=== PATIENT | male | born 1940 ===

== ENCOUNTER 2018-05-24 05:50 | Day surgery (SDC) | payer MEDICARE ==
[~2018-05-24] VITALS: Ht 175.3 cm; Wt 73.0 kg
[~2018-05-24 05:50] MED LIST: ACYC800; ACYC800 PO; ALLO100 PO; ALLO300 PO; ASCO500 PO; CETI10 PO; CHOL10002 PO; COLCHICINE0.6 MG PO; FAMO20 PO; FERR325 PO; FISH1000 PO; GABA600 PO; GOUT MED; HYDCHL25 PO; KLOR-CON; LISI5 PO; LOSA50 PO; MECL25; Norco 5-325 Ta1 EACH PO; PANT20 PO; POTCHL20ER PO; PRED20 PO; SPIHYD PO; TAMS.4ER PO; URSO; URSO300; URSO300 PO
[2018-05-24] MEDS ORDERED: LOSA50 PO (06:42)
[2018-05-24] MEDS ORDERED: LOSA25 PO (06:43)
--- NOTE | 2018-05-24 06:53 | NUR ---
History, Chart, Medications and Allergies reviewed before start of procedure. Patient confirms NPO status and agrees with scheduled surgery. Patient States Post-Procedure ride home has been arranged with his significant other, Valente. Patient reports completing Chlorhexadine shower X2 prior to admission to hospital.
--- NOTE | 2018-05-24 13:23 | NUR ---
Patient up to Ambulate independently. Gait steady. Discharge instructions reviewed with patient. Patient verbalizes understanding. Copy given to patient to take home. Patient States Post-Procedure ride home has been arranged. Discharged via wheelchair to private car for ride home.
== END 2018-05-25 23:05 | disposition home or self-care (01) ==
LOC: ORSCMMR 05:50 → ORD 07:30 → ORSCMMR 05-25 23:05
DX: K40.20 Bilateral inguinal hernia, without obstruction or gangrene, not specified as recurrent (principal); I12.9 Hypertensive chronic kidney disease with stage 1 through stage 4 chronic kidney disease, or unspecified chronic kidney disease; N18.9 Chronic kidney disease, unspecified; E03.9 Hypothyroidism, unspecified; G62.9 Polyneuropathy, unspecified; Z79.899 Other long term (current) drug therapy; Z87.891 Personal history of nicotine dependence
CPT/HCPCS: 49650; S2900; C1781; J0690; J1100; J1885; J2370; J2405; J3010; J7120

== ENCOUNTER 2018-06-16 11:17 | Emergency (ER) | payer MEDICARE ==
[~2018-06-16] VITALS: Ht 175.3 cm; Wt 70.3 kg
[~2018-06-16 11:17] MED LIST changes: +LOSA25 PO
== END 2018-06-16 13:14 | disposition home or self-care (01) ==
LOC: ER 11:17
DX: M70.22 Olecranon bursitis, left elbow (principal); I12.9 Hypertensive chronic kidney disease with stage 1 through stage 4 chronic kidney disease, or unspecified chronic kidney disease; N18.9 Chronic kidney disease, unspecified; M10.9 Gout, unspecified; N40.0 Benign prostatic hyperplasia without lower urinary tract symptoms; Z87.891 Personal history of nicotine dependence; Z88.0 Allergy status to penicillin; Z88.8 Allergy status to other drugs, medicaments and biological substances; Z79.899 Other long term (current) drug therapy
CPT/HCPCS: 73080; 99283-25

== ENCOUNTER 2018-06-18 08:31 | Emergency (ER) | payer MEDICARE ==
[~2018-06-18] VITALS: Ht 175.3 cm; Wt 70.3 kg
[2018-06-18] MEDS ORDERED: Valium5 MG PO (09:45)
[2018-06-18] MEDS ORDERED: Norco 5-325 Ta1 EACH PO (09:45)
== END 2018-06-18 10:18 | disposition home or self-care (01) ==
LOC: ER 08:31
DX: S16.1XXA Strain of muscle, fascia and tendon at neck level, initial encounter (principal); W01.198A Fall on same level from slipping, tripping and stumbling with subsequent striking against other object, initial encounter; I12.9 Hypertensive chronic kidney disease with stage 1 through stage 4 chronic kidney disease, or unspecified chronic kidney disease; N18.9 Chronic kidney disease, unspecified; Z87.891 Personal history of nicotine dependence; Z79.899 Other long term (current) drug therapy
CPT/HCPCS: 72125; 99283-25

== ENCOUNTER 2018-12-26 11:56 | Inpatient (IN) | payer MEDICARE ==
[~2018-12-26] VITALS: Ht 175.3 cm; Wt 75.4 kg
[~2018-12-26 11:56] MED LIST changes: -ACYC800 PO; -ASCO500 PO; -CHOL10002 PO; -FISH1000 PO; -GABA600 PO; -TAMS.4ER PO; -URSO300 PO; +Valium5 MG PO
[2018-12-26 12:15] LABS: Calcium, Ionized (POC) 1.11 mmol/L (1.10-1.46); Chloride (POC) 107 mmol/L (98-108); Creatinine (POC) 2.2 mg/dL (0.8-1.3); Glucose (ISTAT POC) 166 mg/dL (70-99); Hemoglobin (POC) 9.9 g/dL (13.5-17.5); Sodium (POC) 141 mmol/L (135-148); Total CO2 (POC) 22 mmol/L (21-32)
[2018-12-26 12:17] LABS: Hematocrit 32.3 % (37.0-53.0); Hemoglobin 10.6 g/dL (13.5-17.5); Mean Corpuscular HGB 34.4 pg (26.0-34.0); Mean Corpuscular HGB Conc 32.8 g/dL (31.5-36.5); Mean Corpuscular Volume 105 fL (80-100); Mean Platelet Volume 10.4 fL (9.1-12.4); Platelet Count 141 K/mm3 (150-400); RDW Coefficient Variation 12.4 % (11.7-14.2); RDW Standard Deviation 47.6 fL (35.1-46.3); Red Blood Cell Count 3.08 M/mm3 (4.30-5.90); White Blood Cell Count 5.96 K/mm3 (4.00-11.30)
[2018-12-26 12:33] LABS: International Normalized Ratio 1.04
[2018-12-26 12:37] LABS: Albumin, Blood 2.7 g/dL (3.4-5.0); Albumin/Globulin Ratio 0.7 (0.8-1.8); Bilirubin, Total 0.4 mg/dL (0.1-1.0); Bun/Creatinine Ratio 13.2 (12.0-20.0); Calcium, Blood 7.7 mg/dL (8.5-10.1); Creatinine, Blood 1.9 mg/dL (0.60-1.20); Magnesium, Blood 1.9 mg/dL (1.6-2.4); Total Protein, Blood 6.7 g/dL (6.4-8.2); Troponin I 0.065 ng/mL (0.000-0.040)
--- NOTE | 2018-12-26 15:04 | NUR ---
ADMIT PT ARRIVED TO ICU 1 AT 1355. PT ALERT AND ORIENTED, A LITTLE DROWSY. R TR BAND SITE C/D/I, SOFT, NO HEMATOMA. PT DENIES NUMBNESS OR TINGLING IN R HAND. DENIES CHEST PAIN. AGGRASTAT STOPPED PER DR. ANDREW'S ORDERS. IV FLUIDS INFUSING.
--- NOTE | 2018-12-26 17:06 | NUR ---
SHIFT SUMMARY: PT HAS DONE WELL SINCE BEING ADMITTED. HIS RADIAL ACCESS SITE REMAINS C/D/I, SOFT WITH NO HEMATOMA. STARTED LETTING AIR OUT OF THE TR BAND AT 1600 AND PT HAS NOT HAD ANY REBLEEDING. PT DENIES ANY CHEST PAIN. HR IS SR WITH PVCS. SBP HAS BEEN IN THE 140-170S. LUNGS ARE CLEAR, RA. PT HAS BEEN COOPERATIVE WITH ACTIVITY RESTRICTIONS REGARDING RADIAL SITE. PT'S FAMILY HAS BEEN IN AND HAS BEEN UPDATED. CONTINUING TO MONITOR.
--- NOTE | 2018-12-26 18:35 | NUR ---
TR BAND OFF. TEGADERM PLACED OVER SITE. SITE REMAINS C/D/I, SOFT WITH NO HEMATOMA. SPLINT REMAINS IN PLACE AND ACTIVITY RESTRICTIONS FOR WRIST REVIEWED WITH PT.
--- NOTE | 2018-12-26 19:45 | NUR ---
ASSUMED CARE RECEIVED REPORT FROM JACOB RIVAS. PT IS SITTING ON COMMODE TALKING WITH PARTNER. PT DENIES CP AND SOB. STATES HIS ONLY DISCOMFORT IS SOME PRESSURE IN HIS SUPRAPUBIC AREA. HE IS ALERT AND ORIENTED X 4. NS INFUSING AT 75ML/HR. CALL LIGHT WITHIN REACH.
--- NOTE | 2018-12-26 22:34 | NUR ---
UPDATE PT BEEN COMPLAINING OF 5/10 PAIN, PRESSURE IN HIS SUPRAPUBIC AREA. HAS STATED THAT HE HAS HAD ISSUES RECENTLY TRYING TO URINATE, HE COMPLAINS OF DRIBBLING, AND NOT FULLY EMPTYING. TODAY IN ICU PT CANNOT EMPTY BLADDER WHAT SO EVER. ATTEMPTED TO STRAIGHT CATH PT, BUT COULDN'T FINISH. PT WAS IN EXTREME PAIN, AND IT FELT LIKE I WAS HITTING A ROAD BLOCK. CALLED ROSE METZGER TO TRY A UROJET OF LIDOCAINE, AND TO GIVE A DOSE OF TAMSULOSIN.
[2018-12-27 00:36] LABS: Source, Urine Catheter
--- NOTE | 2018-12-27 00:36 | NUR ---
UPDATE STRAIGHT CATHETER DRAINED OVER 600ML OF URINE, SO I GOT ORDERS TO LEAVE IT IN AN INDWELLING CATHETER. UA WAS SENT. ONCE BLADDER WAS DRAINED - BP IMPROVED TREMENDOUSLY, SEE VITAL SIGNS.
[2018-12-27 00:43] LABS: Bilirubin, Urine Neg (Neg); Blood, Urine 3+ (Neg); Glucose Qualitative, Urine Neg (Neg); Ketones, Urine Neg (Neg); Leukocyte Esterase, Urine Neg (Neg); Nitrite, Urine Neg (Neg); Protein, Urine 1+ (Neg); Specific Gravity, Urine 1.005 (1.003-1.022); Urobilinogen, Urine NORM (Normal)
[2018-12-27 00:53] LABS: Appearance, Urine Clear (Clear); Color, Urine Yellow (P-Yellow)
[2018-12-27 00:54] LABS: Bacteria Not Seen /hpf; Red Blood Cells, Urine 0-2 /hpf (0-2); Squamous Epithelial Cells Not Seen /hpf (Few); White Blood Cells, Urine Not Seen /hpf (0-5)
[2018-12-27 04:14] LABS: BASOPHILS ABSOLUTE AUTO 0.03 K/mm3 (0.00-0.23); BASOPHILS PERCENT AUTO 0 % (0-2); EOSINOPHILS ABSOLUTE AUTO 0.05 K/mm3 (0.00-0.68); EOSINOPHILS PERCENT AUTO 1 % (0-6); Hematocrit 31.7 % (37.0-53.0); Hemoglobin 10.8 g/dL (13.5-17.5); IMMATURE GRAN ABSOLUTE AUTO 0.03 K/mm3 (0.00-0.10); IMMATURE GRAN PERCENT AUTO 0 % (0-1); LYMPHOCYTES ABSOLUTE AUTO 1.33 K/mm3 (0.84-5.20); LYMPHOCYTES PERCENT AUTO 14 % (21-46); MONOCYTES ABSOLUTE AUTO 0.96 K/mm3 (0.16-1.47); MONOCYTES PERCENT AUTO 10 % (4-13); Mean Corpuscular HGB 35.5 pg (26.0-34.0); Mean Corpuscular HGB Conc 34.1 g/dL (31.5-36.5); Mean Corpuscular Volume 104 fL (80-100); Mean Platelet Volume 10.2 fL (9.1-12.4); NEUTROPHILS ABSOLUTE AUTO 7.03 K/mm3 (1.96-9.15); NEUTROPHILS PERCENT AUTO 75 % (41-73); Platelet Count 147 K/mm3 (150-400); RDW Coefficient Variation 12.4 % (11.7-14.2); RDW Standard Deviation 47.5 fL (35.1-46.3); Red Blood Cell Count 3.04 M/mm3 (4.30-5.90); White Blood Cell Count 9.43 K/mm3 (4.00-11.30)
[2018-12-27 04:32] LABS: Albumin, Blood 2.5 g/dL (3.4-5.0); Albumin/Globulin Ratio 0.6 (0.8-1.8); Bilirubin, Direct 0.1 mg/dL (0.0-0.3); Bilirubin, Indirect 0.4 mg/dL (0.1-0.7); Bilirubin, Total 0.5 mg/dL (0.1-1.0); Bun/Creatinine Ratio 13.4 (12.0-20.0); Calcium, Blood 7.6 mg/dL (8.5-10.1); Creatinine, Blood 2.09 mg/dL (0.60-1.20); Potassium, Blood 4.1 mmol/L (3.5-5.5); Total Protein, Blood 6.5 g/dL (6.4-8.2)
--- NOTE | 2018-12-27 05:08 | NUR ---
SHIFT SUMMARY PT IS DOING WELL POST NUCLEAR MEDICINE TECHNICIAN PROCEDURE. DENIES CP AND SOB. NO NOTED EKG CHANGES, AND RIGHT RADIAL SITE IS WNL, NO SIGNS OF BLEEDING, HEMATOMA FORMATION. STRONG PULSES, GOOD CAP REFIL, AND NO COMPLAINTS OF NUMBNESS/TINGLING IN RIGHT HAND. PT STARTED SHIFT WITH INCREASED PRESSURE IN SUPRAPUBIC AREA; RELIEVED WITH NAVARRO CATHETER. URINE PINK TINGED POST INDWELLING INSERTION. WHEN INSERTING NAVARRO CATHETER, PT HAD IMMENSE PAIN, AND SHOWED SIGNS OF ENLARGED PROSTATE. (DRIBBLING URINE PRIOR, UNABLE TO EMPTY BLADDER). SEE PREVIOUS BLOOD PRESSURE. OTHER THAN THAT, PT HAD UNEVENTFUL NIGHT. NO COMPLAINTS OF DISCOMFORT. PARTNER WAS AT BEDSIDE AT START OF SHIFT, BUT WENT HOME. BED IS LOW AND LOCKED. CALL LIGHT WITHIN REACH. PT IS RECEIVING 1/2 NS @ 75ML/HR.
--- NOTE | 2018-12-27 08:25 | NUR ---
ASSUMED CARE ASSUMED CARE OF PT AT 0700. REPORT RECEIVED FROM ROB MARCELO. PT AWAKE, ALERT, ORIENTED X4. PT COMPLAINS OF FEELING OF PRESSURE/FULLNESS OVER ABDOMEN WELL "FEELING FUNNY" IN HIS LEFT ARM. EKG OBTAINED. DR BARBA NOTIFIED. ORDERS FOR NITRO PASTE OBTAINED AND SHE WILL SEE THE PT THIS MORNING. PT HAS NO OTHER COMPLAINTS OF PAIN, NAUSEA, SHORTNESS OF BREATH. R RADIAL ACCESS SITE STABLE. ARM BOARD REMAINS IN PLACE. VITAL SIGNS STABLE. PT HAS NAVARRO CATH IN PLACE DRAINING TO GRAVITY. PT USING CALL LIGHT FOR NEEDS. WILL CONTINUE TO MONITOR.
[2018-12-27 09:55] LABS: Creatine Kinase MB 120.7 ng/mL (0.0-3.6)
[2018-12-27 10:11] LABS: Creatine Kinase MB Index 10.6 (0.0-4.0); Troponin I 70.8 ng/mL (0.000-0.040)
--- NOTE | 2018-12-27 11:03 | NUR ---
Patient is lying in bed and alert. Patient openly shares about his life choices, his different careers (including 27 years at [employer]), his family dynamics and about his thoughts on mandaeism (patient has a [employer] background). I listen empathically, reinforce helpful attitudes and practices, explore spiritual beliefs and provide emotional support, a calming presence and prayer. Patient responds well and states that he feels safe and that he appreciates that. I will continue to remain available to patient and family.
--- NOTE | 2018-12-27 13:06 | NUR ---
REPORT GIVEN TO KODY GLUE JOINTER FEEDER TO ASSUME CARE OF PT.
--- NOTE | 2018-12-27 13:30 | NUR ---
ASSUMED CARE: PT TRANSFERRED TO PCU 15 FROM ICU. REPORT RECIEVED FROM ROB CANTRELL. PT'S WRIST SITE WITHOUT BLEEDING OR SIGNS OF HEMATOMA. ARM BOARD IN PLACE. NAVARRO CATH IN PLACE WITH PINK TINGED URINE. TELE MONITOR ON, HR NSR. SCDS IN PLACE. RESTING IN BED QUIETLY, S.O. AT BEDSIDE
--- NOTE | 2018-12-27 14:50 | NUR ---
PT STATED HE WAS FEELING SOB, BUT NO CP. CHECKED WITH TELE AND SOME BIGEMINY NOTED. BOTTLE PACKER AWARE. SPOKE WITH PT AND INSTRUCTED TO LET STAFF KNOW IF ANY CHEST PAIN OCCURS OR IF SOB CONTINUES OR WORSENS
--- NOTE | 2018-12-27 17:43 | NUR ---
SHIFT SUMMARY: PT INDEPENDENT IN ROOM. RADIAL SITE WITHOUT SIGNS OF BLEEDING OR HEMATOMA. AWAITING AFTERNOON TROPONIN. DENIES CP OR FURTHER CONCERNS. FAMILY AT BEDSIDE AT THIS TIME. DENIES NEEDS OR CONCERNS.
[2018-12-27 17:48] LABS: Creatine Kinase MB 63.4 ng/mL (0.0-3.6); Creatine Kinase MB Index 6.9 (0.0-4.0)
[2018-12-27 18:07] LABS: Troponin I 48.4 ng/mL (0.000-0.040)
--- NOTE | 2018-12-27 18:29 | NUR ---
ASSISTANT DRAFTER CALLED WITH REPORT OF MULTIFOCAL PVCS. SPOKE WITH DR GUEVARA TO DISCUSS. INCREASED BETA BLOCKERS. STATES THAT IF RUN OF VTACH NOTED, DO EKG. STATES HE WILL DISCUSS PT WITH DR ANDREW.
[2018-12-28 01:24] LABS: Albumin, Blood 2.7 g/dL (3.4-5.0); Albumin/Globulin Ratio 0.6 (0.8-1.8); Bilirubin, Direct 0.2 mg/dL (0.0-0.3); Bilirubin, Indirect 0.4 mg/dL (0.1-0.7); Bilirubin, Total 0.6 mg/dL (0.1-1.0); Bun/Creatinine Ratio 15.8 (12.0-20.0); Creatinine, Blood 2.09 mg/dL (0.60-1.20); Globulin, Blood 4.2 g/dL (2.2-4.0); Potassium, Blood 4.2 mmol/L (3.5-5.5); Total Protein, Blood 6.9 g/dL (6.4-8.2)
[2018-12-28 01:40] LABS: Creatine Kinase MB Index 5.3 (0.0-4.0)
[2018-12-28 02:01] LABS: Troponin I 40.6 ng/mL (0.000-0.040)
--- NOTE | 2018-12-28 04:53 | NUR ---
SHIFT SUMMARY: PATIENT TROPONINS TRENDING DOWN, VSS, LEFT KNEE PAIN TREATED WITH 1X MEDICATION ORDER (SEE EMAR). BED LOW AND LOCKED, CALL LIGHT WITHIN REACH.
[2018-12-28] MEDS ORDERED: TICA90TA (10:40)
[2018-12-28] MEDS ORDERED: ABAT250V (10:41)
--- NOTE | 2018-12-28 14:13 | NUR ---
PT DISCHARGED 1205 WITH DC INSTRUCTIONS GIVEN TO PT AND SIGN OTHER. PT'S POWERGLIDE AND IV DC'D. PT DC'D HOME WITH NAVARRO CATH AND DC INSTRUCTIONS GIVEN. PT STATES F/U VISIT WITH UROLOGIST IN [place] 01/03. RX FAXED TO [facility]. WC OUTSIDE TO PRIVATE CAR TO HOME. BELONGINGS SENT WITH PT.
[2018-12-30] MEDS ORDERED: Zithromax250 MG PO (01:22)
== END 2018-12-28 12:15 | disposition home or self-care (01) | DRG 247 ==
LOC: ER 11:56 → ICUW 12:14 → ICUE 12:14 → PCU 12-27 13:15
PROVIDERS: Emergency Medicine; Internal Medicine; ADMIT Internal Medicine Interventional Cardiology
PROC: 4A023N7 Measurement of Cardiac Sampling and Pressure, Left Heart, Percutaneous Approach (ICD-10-PCS; principal; 2018-12-26)
PROC: 027034Z Dilation of Coronary Artery, One Artery with Drug-eluting Intraluminal Device, Percutaneous Approach (ICD-10-PCS; 2018-12-26)
PROC: B211YZZ Fluoroscopy of Multiple Coronary Arteries using Other Contrast (ICD-10-PCS; 2018-12-26)
DX: I21.19 ST elevation (STEMI) myocardial infarction involving other coronary artery of inferior wall (principal); K92.2 Gastrointestinal hemorrhage, unspecified; I25.10 Atherosclerotic heart disease of native coronary artery without angina pectoris; I12.9 Hypertensive chronic kidney disease with stage 1 through stage 4 chronic kidney disease, or unspecified chronic kidney disease; N18.3 Chronic kidney disease, stage 3 (moderate); N40.0 Benign prostatic hyperplasia without lower urinary tract symptoms; K74.60 Unspecified cirrhosis of liver; M10.9 Gout, unspecified
CPT/HCPCS: 36415; 51701; 51703; 71045; 76937; 80047; 80048; 80053; 80076; 81001; 82248; 82550; 82553; 83735; 84484; 85014; 85025; 85027; 85347; 85610; 85730; 86850; 86900; 86901; 92978; 93005; 93010; 93306; 93458; 99152; 99153; 99285-25; C1725; C1751; C1753; C1757; C1769; C1874; C1887; C1894; C9606; J0461; J1644; J2250; J2370; J3010; J3246; J7030; Q9967

== ENCOUNTER 2018-12-30 16:40 | Inpatient (IN) | payer MEDICARE ==
[~2018-12-30] VITALS: Ht 175.3 cm; Wt 68.6 kg
[~2018-12-30 16:40] MED LIST changes: +ABAT250V; +TICA90TA; +Zithromax250 MG PO
[2018-12-30 17:13] LABS: BASOPHILS ABSOLUTE AUTO 0.03 K/mm3 (0.00-0.23); BASOPHILS PERCENT AUTO 0 % (0-2); EOSINOPHILS PERCENT AUTO 0 % (0-6); Hematocrit 30.9 % (37.0-53.0); Hemoglobin 10.5 g/dL (13.5-17.5); IMMATURE GRAN ABSOLUTE AUTO 0.07 K/mm3 (0.00-0.10); IMMATURE GRAN PERCENT AUTO 1 % (0-1); LYMPHOCYTES PERCENT AUTO 7 % (21-46); MONOCYTES PERCENT AUTO 14 % (4-13); Mean Corpuscular HGB 34.9 pg (26.0-34.0); Mean Corpuscular Volume 103 fL (80-100); NEUTROPHILS ABSOLUTE AUTO 11.44 K/mm3 (1.96-9.15); NEUTROPHILS PERCENT AUTO 79 % (41-73); Platelet Count 153 K/mm3 (150-400); RDW Coefficient Variation 12.3 % (11.7-14.2); RDW Standard Deviation 45.9 fL (35.1-46.3); Red Blood Cell Count 3.01 M/mm3 (4.30-5.90); White Blood Cell Count 14.54 K/mm3 (4.00-11.30)
[2018-12-30] MEDS ORDERED: GABA300 PO (17:38)
[2018-12-30] MEDS ORDERED: Zovirax800 MG PO (17:39)
[2018-12-30] MEDS ORDERED: TAMS.4ER PO (17:39)
[2018-12-30] MEDS ORDERED: LOSA25 PO (17:40)
[2018-12-30] MEDS ORDERED: URSODIOL250 MG PO (17:40)
[2018-12-30 17:41] LABS: Albumin, Blood 2.8 g/dL (3.4-5.0); Albumin/Globulin Ratio 0.6 (0.8-1.8); Bilirubin, Total 1.3 mg/dL (0.1-1.0); Bun/Creatinine Ratio 13.1 (12.0-20.0); Calcium, Blood 8.2 mg/dL (8.5-10.1); Creatinine, Blood 2.13 mg/dL (0.60-1.20); Globulin, Blood 4.5 g/dL (2.2-4.0); Total Protein, Blood 7.3 g/dL (6.4-8.2)
[2018-12-30] MEDS ORDERED: LEVSOD50 PO (17:41)
[2018-12-30] MEDS ORDERED: Aspir 8181 MG PO (17:41)
[2018-12-30] MEDS ORDERED: Lipitor20 MG PO (17:42)
[2018-12-30] MEDS ORDERED: METO25 PO (17:42)
[2018-12-30] MEDS ORDERED: Norvasc2.5 MG PO (17:42)
[2018-12-30] MEDS ORDERED: LOSARTAN POTASS50 MG PO (17:47)
[2018-12-30] MEDS ORDERED: TICA90TA PO (18:02)
[2018-12-30] MEDS ORDERED: Vitamin C PO (18:04)
[2018-12-30] MEDS ORDERED: Fish Oil 10001000 MG PO (18:04)
[2018-12-30] MEDS ORDERED: Vitamin D3 PO (18:05)
[2018-12-30] MEDS ORDERED: Vitamin B-12 PO (18:05)
[2018-12-30] MEDS ORDERED: Biotin PO (18:06)
[2018-12-30 18:15] LABS: Troponin I 2.35 ng/mL (0.000-0.040)
[2018-12-30 22:24] LABS: Source, Urine Clean Catch
[2018-12-30 22:27] LABS: Bilirubin, Urine Neg (Neg); Blood, Urine 4+ (Neg); Glucose Qualitative, Urine Neg (Neg); Ketones, Urine Neg (Neg); Leukocyte Esterase, Urine 1+ (Neg); Nitrite, Urine Neg (Neg); Protein, Urine 3+ (Neg); Specific Gravity, Urine 1.005 (1.003-1.022); Urobilinogen, Urine NORM (Normal)
[2018-12-30 22:32] LABS: Appearance, Urine Clear (Clear); Color, Urine Yellow (P-Yellow)
[2018-12-30 22:34] LABS: Bacteria Few /hpf; Squamous Epithelial Cells Not Seen /hpf (Few)
--- NOTE | 2018-12-31 00:54 | NUR ---
ASSUMED CARE. PT AWAKE AND RESQUESTS MORE WATER. MORE WATER GIVEN, BUT EXPLAINED THAT HE WILL NEED TO GO SLOW BECAUSE WE ARE TRYING TO DIURES HIM.
--- NOTE | 2018-12-31 04:07 | NUR ---
NAVARRO D/C'D PT WAS ADMITTED WITH A NAVARRO INPLACE FROM HIS PREVIOUS VISIT. IT WAS JUST REMOVED WITHOUT ANY DIFFICULTY.
--- NOTE | 2018-12-31 05:57 | NUR ---
SHIFT SUMMARY: PT DIDN'T SLEEP MUCH AT ALL. HAS FELT VERY UNCOMFORTABLE ALL NIGHT. HAS BEEN UP NUMEROUS TIME TO HAVE BM'S. BM'S HAVE VERY HARD AND DARK BROWN. WITH THE LAST BM, PT CONVERTED FROM AFIB TO SINUS RHYTHM WITH PVC'S. PT HAVING DYSPNEA AND SOB WITH EXERTION. TROP TRENDING DOWN.
[2018-12-31 09:08] LABS: BASOPHILS ABSOLUTE AUTO 0.04 K/mm3 (0.00-0.23); BASOPHILS PERCENT AUTO 0 % (0-2); EOSINOPHILS ABSOLUTE AUTO 0.02 K/mm3 (0.00-0.68); EOSINOPHILS PERCENT AUTO 0 % (0-6); Hematocrit 30.2 % (37.0-53.0); Hemoglobin 10.4 g/dL (13.5-17.5); IMMATURE GRAN ABSOLUTE AUTO 0.06 K/mm3 (0.00-0.10); IMMATURE GRAN PERCENT AUTO 0 % (0-1); LYMPHOCYTES ABSOLUTE AUTO 1.29 K/mm3 (0.84-5.20); LYMPHOCYTES PERCENT AUTO 9 % (21-46); MONOCYTES PERCENT AUTO 10 % (4-13); Mean Corpuscular HGB 35.5 pg (26.0-34.0); Mean Corpuscular HGB Conc 34.4 g/dL (31.5-36.5); Mean Corpuscular Volume 103 fL (80-100); Mean Platelet Volume 11.2 fL (9.1-12.4); NEUTROPHILS ABSOLUTE AUTO 11.89 K/mm3 (1.96-9.15); NEUTROPHILS PERCENT AUTO 80 % (41-73); Platelet Count 176 K/mm3 (150-400); RDW Coefficient Variation 12.4 % (11.7-14.2); RDW Standard Deviation 46.6 fL (35.1-46.3); Red Blood Cell Count 2.93 M/mm3 (4.30-5.90)
[2018-12-31 09:30] LABS: Albumin, Blood 2.5 g/dL (3.4-5.0); Albumin/Globulin Ratio 0.5 (0.8-1.8); Bilirubin, Total 1.1 mg/dL (0.1-1.0); Bun/Creatinine Ratio 14.2 (12.0-20.0); Calcium, Blood 7.8 mg/dL (8.5-10.1); Creatinine, Blood 2.25 mg/dL (0.60-1.20); Globulin, Blood 4.9 g/dL (2.2-4.0); Total Protein, Blood 7.4 g/dL (6.4-8.2)
[2018-12-31 11:35] LABS: Adenovirus Not Detected (NOT DETECT); Bordetella pertussis Not Detected (NOT DETECT); Chlamydophila pneumoniae Not Detected (NOT DETECT); Coronavirus 229E Not Detected (NOT DETECT); Coronavirus HKU1 Not Detected (NOT DETECT); Coronavirus NL63 Not Detected (NOT DETECT); Coronavirus OC43 Not Detected (NOT DETECT); Human Metapneumovirus Not Detected (NOT DETECT); Human Rhinovirus/Enterovirus Not Detected (NOT DETECT); Influenza A Not Detected (NOT DETECT); Influenza A/2009-H1 Not Detected (NOT DETECT); Influenza A/H1 Not Detected (NOT DETECT); Influenza A/H3 Not Detected (NOT DETECT); Influenza B Not Detected (NOT DETECT); Mycoplasma pneumoniae Not Detected (NOT DETECT); Parainfluenza Virus 1 Not Detected (NOT DETECT); Parainfluenza Virus 2 Not Detected (NOT DETECT); Parainfluenza Virus 3 Not Detected (NOT DETECT); Parainfluenza Virus 4 Not Detected (NOT DETECT); Respiratory Syncytial Virus Not Detected (NOT DETECT)
--- NOTE | 2018-12-31 16:00 | NUR ---
Patient is sitting on the edge of his bed and alert. Patient tells me the story of current medical issues and the plans for him moving forward. Patient talks at length about his struggles, lessons and beliefs in life. Patient shares personal stories of great ache and great success. I listen empathically, highlight the victories, reinforce helpful attitudes and practices and provide companionship and prayer. Patient responds well and shows signs of restored racheal. Patient voices appreciation for my time and care. I will continue to remain available to patient and family.
--- NOTE | 2018-12-31 17:35 | NUR ---
SHIFT SUMMARY PT ALERT AND ORIENTED. VS STABLE. HR NSR WITH PVC. BP STABLE. O2 SATS REMAIN ABOVE 90% ON RA. PT ABLE TO WALK TO BATHROOM NEEDED TO VOID INDEPENDENTLY. PT STATES HE HAS CHEST DISCOMFORT AND SOB IF HE TRIES TO LAY FLAT, BUT DENIES ANY PAIN OR SOB WITH SITTING UP. WILL CONTINUE TO MONITOR AND REPORT TO ONCOMING RN. CALL LIGHT IN REACH. PT CALLING APPROPRIATELY.
--- NOTE | 2018-12-31 19:50 | NUR ---
PT UP PER SELF WITHOUT DIFFICULTY TO VOID, DENIES CHEST PAIN, NAUSEA OR DYSPNEA.
--- NOTE | 2019-01-01 00:48 | NUR ---
CONVERTED FROM SR, WHICH HE HAS BEEN ALL DAY SINCE APPROX 0400 LAST NOC , TO AF NOW AT 130 RATE. NO NEW CHEST DISCOMFORT REPORTED PALPATES LT CHEST AXILLA AREA AND SAYS THIS AREA KAROL ALWAYS BEEN SORE. AND NOT DIFFERENT AT THIS TIME. BP WNL. SLEEPING WHEN THIS STATED. WILL CONTINUE TO MONITOR
--- NOTE | 2019-01-01 02:05 | NUR ---
PLACED CALL TO DR CONTE AND REVIEWED AF RVR ON ADMIT FOR APPROX 8 HR THEN CONVERTED TO SR W/ FREQ PACS/ FOR APPROX 21 HR , NOW AF RVR AT 130 AVERAGE FOR 1 HR.VS REPORTED AND SORE LT SHOULDER SORENESS UNRELATED TO CHEST DISCOMFORT. REPORTED TROPONIN TREND DOWN AND HX OF STEMI LAST WEEK AND STENT. ORDERS FOR PO LOPRESSOR EXTRA DOSE. BP REPORTED
[2019-01-01 03:43] LABS: Hemoglobin 11.3 g/dL (13.5-17.5); Mean Corpuscular HGB 34.6 pg (26.0-34.0); Mean Corpuscular HGB Conc 34.2 g/dL (31.5-36.5); Mean Corpuscular Volume 101 fL (80-100); Platelet Count 205 K/mm3 (150-400); RDW Standard Deviation 44.8 fL (35.1-46.3); Red Blood Cell Count 3.27 M/mm3 (4.30-5.90); White Blood Cell Count 9.47 K/mm3 (4.00-11.30)
[2019-01-01 04:03] LABS: Bun/Creatinine Ratio 17.5 (12.0-20.0); Calcium, Blood 8.3 mg/dL (8.5-10.1); Creatinine, Blood 2.52 mg/dL (0.60-1.20); Potassium, Blood 3.9 mmol/L (3.5-5.5)
--- NOTE | 2019-01-01 04:25 | NUR ---
SHIFT SUMMARY: 78 Y/O MALE RESTED COMFORTABLY ALL SHIFT, PTS HEART RETURNED TO A/FIB WITH RVR AFTER MIDNIGHT, DR CONTE WAS NOTIFIED WITH METOPROLOL 50MG PO GIVEN, HEART RATE 107 WITH BP 107/75 AFTER MEDS GIVEN, DENIES ANY FURTHER LEFT SHOULDER ACHE, DENIES PAIN OR NAUSEA, HAPPY AND COOPERATIVE WITH STAFF, VOIDING LARGE AMOUNTS CLEAR YELLOW FLUID ALL SHIFT, BED LOW POSITION, CALL LIGHT AT SIDE.
--- NOTE | 2019-01-01 07:25 | NUR ---
ASSUMED CARE: PT RESTING QUIETLY. ON RA. NO ACUTE NEEDS OR DISTRESS NOTED AT THIS TIME.
--- NOTE | 2019-01-01 10:57 | NUR ---
WILL CONTINUE TO MONITOR VITALS CHANGE IN BP NOTED POST ADMIN OF NEW DOSE OF BP MEDICATIONS
--- NOTE | 2019-01-01 11:11 | NUR ---
DR DEXTER IS UPDATED ABOUT CHANGE IN RHYTH, AFIB NOTED BETWEEN 110-130s, PT REPORTS MILD SOB, NO CP, REPORTS NAUSEA. PT REPOSITIONED, VITALS REASSESSED. PT AND FAMILY EDUCATED ABOUT NEW MEIDCATION ORDERS THAT WILL BE ADMINISTERED
--- NOTE | 2019-01-01 17:00 | NUR ---
REPORT TO BETSEY LEYVA ON MEDICAL FLOOR
--- NOTE | 2019-01-01 18:01 | NUR ---
ASSUMED PT CARE APPROX 1730. RECEIVED REPORT FROM BETSEY LEYVA RN. PT IS PLEASANT/COOPERATIVE. STATE NO DISCOMFORT @ THIS TIME. UP IND TO BR. SITTING UP IN BED FOR DINNER, WATCHING TV. AFIB/TELE, HR 100-120 PER MX TECH. IV SITE RFA 20GA SL. VSS.
[2019-01-02 05:43] LABS: Bun/Creatinine Ratio 25.4 (12.0-20.0); Calcium, Blood 8.1 mg/dL (8.5-10.1); Creatinine, Blood 2.44 mg/dL (0.60-1.20); Potassium, Blood 4.2 mmol/L (3.5-5.5)
--- NOTE | 2019-01-02 07:12 | NUR ---
pt had stemi on 12/26/18 and had angioplasty with cardiac stent placement. On anticoagulants. Back 12/30/18 with suspected UTI and pneumonia. On room air voids without difficulty. On Tele monitor was afib with bbb most of night, then this AM around 6 am converted to NSR rate in 80s. Up indep in room and denies acute distress.
[2019-01-02] MEDS ORDERED: METO50ER PO (11:57)
[2019-01-02] MEDS ORDERED: ASPI81CH PO (11:58)
[2019-01-02] MEDS ORDERED: CLOP75 PO (11:58)
[2019-01-02] MEDS ORDERED: LEVO750 PO (11:59)
[2019-01-02] MEDS ORDERED: LOSA25 PO (11:59)
[2019-01-02] MEDS ORDERED: XARELTO15 MG PO (12:00)
--- NOTE | 2019-01-02 14:06 | NUR ---
PT DCD HOME WITH SIGNIFICANT OTHER. ALL RX FAXED TO [facility] IN [place] PER PT REQUEST. ALL ORDERS AND FOLLOW UPS REVIEWED WITH PT AND PARTNER WITH ALL QUESTIONS ANSWERED. IV REMMOVED WITH NO ISSUE. ALL PERSONAL BELONGINGS SENT WITH PT. PT STABLE UPON DC.
== END 2019-01-02 14:05 | disposition home or self-care (01) | DRG 871 ==
LOC: ER 16:40 → PCU 19:31 → MEDS 01-01 17:11 → ENPENDDIS 01-02 11:05 → MEDS 01-02 14:05
PROVIDERS: Internal Medicine; Nurse Practitioner Acute Care; Physician Assistant; ADMIT Internal Medicine
DX: A41.9 Sepsis, unspecified organism (principal); J18.9 Pneumonia, unspecified organism; J96.01 Acute respiratory failure with hypoxia; I50.33 Acute on chronic diastolic (congestive) heart failure; T83.511A Infection and inflammatory reaction due to indwelling urethral catheter, initial encounter; N39.0 Urinary tract infection, site not specified; I13.0 Hypertensive heart and chronic kidney disease with heart failure and stage 1 through stage 4 chronic kidney disease, or unspecified chronic kidney disease; N17.9 Acute kidney failure, unspecified; N18.3 Chronic kidney disease, stage 3 (moderate); I25.2 Old myocardial infarction; K59.00 Constipation, unspecified; E03.9 Hypothyroidism, unspecified; I25.10 Atherosclerotic heart disease of native coronary artery without angina pectoris; T50.995A Adverse effect of other drugs, medicaments and biological substances, initial encounter; I48.91 Unspecified atrial fibrillation; Z95.5 Presence of coronary angioplasty implant and graft; Z87.891 Personal history of nicotine dependence
CPT/HCPCS: 0099U; 36415; 71046; 80048; 80053; 81001; 83605; 83880; 84484; 85025; 85027; 87040; 87086; 87449; 93005; 93010; 96365; 96367; 96374; 96375; 96376; 97162; 97530; 99284-25; 99285-25; A9270; J0456; J0696; J1160; J1940; J1956; J2185; J2543; J3010; J3370; J7030; J7050

== ENCOUNTER → 2019-01-14 | Outpatient (CLI) | payer MEDICARE ==
[~2019-01-14] MED LIST changes: +ASPI81CH PO; +Aspir 8181 MG PO; +Biotin PO; +CLOP75 PO; +Fish Oil 10001000 MG PO; +GABA300 PO; +LEVO750 PO; +LEVSOD50 PO; +LOSARTAN POTASS50 MG PO; +Lipitor20 MG PO; +METO25 PO; +METO50ER PO; +Norvasc2.5 MG PO; +TAMS.4ER PO; +TICA90TA PO; +URSODIOL250 MG PO; +Vitamin B-12 PO; +Vitamin C PO; +Vitamin D3 PO; +XARELTO15 MG PO; +Zovirax800 MG PO
[2019-01-16 15:02] LABS: Stool Occult Bld Immuno 1 Negative (NEGATIVE); Stool Occult Bld Immuno 2 Negative (NEGATIVE)
== END | disposition home or self-care (01) ==
LOC: LAB 16:25 → LAB SHORT 16:25
PROVIDERS: Internal Medicine Gastroenterology
DX: D64.9 Anemia, unspecified (principal)
CPT/HCPCS: 82274

== ENCOUNTER 2019-10-11 08:40 | Emergency (ER) | payer MEDICARE, OTHER ==
[~2019-10-11] VITALS: Ht 175.3 cm; Wt 80.7 kg
[~2019-10-11 08:40] MED LIST changes: +ATOR40TA PO; +METOPROLOL SUCC25 MG PO
== END 2019-10-11 09:40 | disposition home or self-care (01) ==
LOC: ER 08:40
DX: Z48.00 Encounter for change or removal of nonsurgical wound dressing (principal); Z88.0 Allergy status to penicillin; Z88.8 Allergy status to other drugs, medicaments and biological substances; Z79.899 Other long term (current) drug therapy; Z88.7 Allergy status to serum and vaccine; M10.9 Gout, unspecified; I12.9 Hypertensive chronic kidney disease with stage 1 through stage 4 chronic kidney disease, or unspecified chronic kidney disease; N18.3 Chronic kidney disease, stage 3 (moderate); E03.9 Hypothyroidism, unspecified; I25.2 Old myocardial infarction; Z87.891 Personal history of nicotine dependence
CPT/HCPCS: 99282

== ENCOUNTER 2019-10-19 20:45 | Emergency (ER) | payer MEDICARE, OTHER ==
[~2019-10-19] VITALS: Ht 175.3 cm; Wt 79.4 kg
[2019-10-19 22:29] LABS: International Normalized Ratio 1.04; Prothrombin Time Results 11.1 Sec (9.7-11.5)
[2019-10-19 22:52] LABS: BASOPHILS ABSOLUTE AUTO 0.04 K/mm3 (0.00-0.23); BASOPHILS PERCENT AUTO 1 % (0-2); EOSINOPHILS ABSOLUTE AUTO 0.33 K/mm3 (0.00-0.68); EOSINOPHILS PERCENT AUTO 5 % (0-6); Hematocrit 33.4 % (37.0-53.0); Hemoglobin 11.2 g/dL (13.5-17.5); IMMATURE GRAN ABSOLUTE AUTO 0.01 K/mm3 (0.00-0.10); IMMATURE GRAN PERCENT AUTO 0 % (0-1); LYMPHOCYTES PERCENT AUTO 20 % (21-46); MONOCYTES ABSOLUTE AUTO 0.74 K/mm3 (0.16-1.47); MONOCYTES PERCENT AUTO 10 % (4-13); Mean Corpuscular HGB 34.4 pg (26.0-34.0); Mean Corpuscular HGB Conc 33.5 g/dL (31.5-36.5); Mean Corpuscular Volume 103 fL (80-100); Mean Platelet Volume 10.2 fL (9.1-12.4); NEUTROPHILS ABSOLUTE AUTO 4.72 K/mm3 (1.96-9.15); NEUTROPHILS PERCENT AUTO 64 % (41-73); Platelet Count 140 K/mm3 (150-400); RDW Coefficient Variation 12.4 % (11.7-14.2); RDW Standard Deviation 46.3 fL (35.1-46.3); Red Blood Cell Count 3.26 M/mm3 (4.30-5.90); White Blood Cell Count 7.34 K/mm3 (4.00-11.30)
[2019-10-20] MEDS ORDERED: KEFLEX500 MG PO (00:48)
== END 2019-10-20 01:41 | disposition home or self-care (01) ==
LOC: ER 20:45
PROVIDERS: Emergency Medicine
DX: R04.0 Epistaxis (principal); Z88.0 Allergy status to penicillin; Z88.7 Allergy status to serum and vaccine; Z88.8 Allergy status to other drugs, medicaments and biological substances; Z79.899 Other long term (current) drug therapy; I12.9 Hypertensive chronic kidney disease with stage 1 through stage 4 chronic kidney disease, or unspecified chronic kidney disease; N18.3 Chronic kidney disease, stage 3 (moderate); E03.9 Hypothyroidism, unspecified; M10.9 Gout, unspecified; I25.2 Old myocardial infarction; Z87.891 Personal history of nicotine dependence
CPT/HCPCS: 30903; 85025; 85610; 85730; 99283-25

== ENCOUNTER 2020-02-09 11:19 | Day surgery (SDC) | payer MEDICARE, OTHER ==
[~2020-02-09] VITALS: Ht 175.3 cm; Wt 73.6 kg
[~2020-02-09 11:19] MED LIST changes: +HYDROCHLOROTH12.5 MG PO; +KEFLEX500 MG PO
== END 2020-02-09 23:59 | disposition home or self-care (01) ==
LOC: ORSCSDS 11:19
PROVIDERS: Internal Medicine Gastroenterology
PROC: 0DJ08ZZ Inspection of Upper Intestinal Tract, Via Natural or Artificial Opening Endoscopic (ICD-10-PCS; principal; 2020-02-09 13:30)
DX: K74.3 Primary biliary cirrhosis (principal); Z13.810 Encounter for screening for upper gastrointestinal disorder; K74.00 Hepatic fibrosis, unspecified; K76.6 Portal hypertension; K31.89 Other diseases of stomach and duodenum; I25.2 Old myocardial infarction; Z87.11 Personal history of peptic ulcer disease; Z87.891 Personal history of nicotine dependence; Z79.01 Long term (current) use of anticoagulants; Z79.899 Other long term (current) drug therapy
CPT/HCPCS: J2704; J7120